=== PATIENT | male | born 2000 | race Caucasian/White ===

== ENCOUNTER 2023-09-02 23:51 | Emergency (ER) | payer OTHER, SELFPAY ==
[2023-09-02 23:53] VITALS: BP 174/114
--- NOTE | 2023-09-03 00:04 | ED.GENMED ---
History of Present Illness
<DWAYNE Cisse - Last Filed: 09/03/23 05:02>
General
Chief Complaint: Abdominal Symptoms
Time Seen by Provider: 09/02/23 23:57
Travel History
Have you had any contact with someone who has COVID-19?: No
Do you have any symptoms of coronavirus? Fever > 100 degrees, chills, cough, shortness of breath, sore throat, loss of taste or smell, muscle aches, or headache?: No
History of Present Illness
History of Present Illness:
This is a 22 yo male PMH of cyclic vomiting presenting for vomiting x 4 days. He states he stopped cannibis use earlier this week and this was followed by intractible vomiting, stating he vomits up to 30 times per day, associated occasional spots of
blood in his vomit. On monday he developed 6/10 crampy epigastric pain which he states radiates to his esophagus. He was evaluated at [facility] on and was treated with zofran and ativan which he states helped until cessation of these
medications on discharge.
On exam, patient is in mild distress, has mild generalized abdominal tenderness.
Past History
<DAWYNE Cisse - Last Filed: 09/03/23 05:02>
Past History
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
ED Past Surgical History: None
Social History
Tobacco: Vaping
Alcohol: None
Drug: Marijuana (states that he stopped)
Personal: Single
Living: with family
Review of Systems
<DWAYNE Cisse - Last Filed: 09/03/23 05:02>
Review of Systems
Allergies reviewed?: Yes
Constitutional: Reports fatigue
EENT: Reports no symptoms
Respiratory: Reports no symptoms
Cardiac: Reports no symptoms
ABD/GI: Reports abdominal pain, nausea, vomiting and pain
: Reports no symptoms
Musculoskeletal: Reports no symptoms
Skin: Reports no symptoms
Neurological: Reports no symptoms
Phy Exam
<DWAYNE Cisse - Last Filed: 09/03/23 05:02>
General Physical Exam
General Presentation: mild distress
General age: appears stated age
General Skin: warm and dry
General Mental: alert
Cardiovascular Exam
Cardiovascular Exam: regular rate/rhythm
Pulmonary Exam
Pulmonary Exam: lungs clear
Gastrointestinal Exam
Gastrointestinal Exam: soft, non distended and tender
Palpation: generalized: Mild tenderness
Skin Exam
Skin Exam: normal color
Course
<DWAYNE Cisse - Last Filed: 09/03/23 05:02>
Orders/Labs/Results
Orders:
Orders
09/03/23 00:08
Electrocardiogram (*1) Urgent
Reason for Study: Syncope
EKG- Treatment ONCE
09/03/23 00:09
0.9% Sodium Chloride 1000 ml [Nss] 1,000 ml IV BOLUS
09/03/23 00:22
Complete Blood Count/With Diff Urgent
09/03/23 00:34
Ondansetron Injectable [Zofran] 4 mg .ROUTE .STK-MED ONE
09/03/23 00:37
Ondansetron Injectable [Zofran] 4 mg IV NOW STA
09/03/23 00:38
Comprehensive Metabolic Panel Urgent
Comment: REDRAW
Magnesium Urgent
09/03/23 00:46
0.9% Sodium Chloride 1000 ml [Nss] 1,000 ml IV BOLUS
09/03/23 00:47
Lorazepam [Ativan] 1 mg IV NOW STA
Abnormal Lab Results
09/03/23 09/03/23
00:22 00:38
WBC 11.8 H 10^3/uL
(4.8-10.8)
MPV 10.9 H fL
(7.4-10.4)
Abs Immat Gran (auto) 0.1 H 10^3/uL
(0-0.05)
Absolute Neuts (auto) 7.5 H 10^3/uL
(1.4-6.5)
Absolute Monos (auto) 0.9 H 10^3/uL
(0.1-0.6)
Immature Gran % 1.2 H %
(0-0.5)
Chloride 93 L mmol/L
(98-107)
Carbon Dioxide 31 H mmol/L
(22-30)
BUN 25 H mg/dl
(9-20)
Glucose 130 H mg/dl
(70-99)
Calcium 10.5 H mg/dl
(8.4-10.2)
Magnesium 2.5 H mg/dl
(1.6-2.3)
Total Bilirubin 1.4 H mg/dl
(0.2-1.3)
Total Protein 8.9 H g/dl
(6.3-8.2)
Albumin 5.4 H g/dl
(3.5-5.0)
09/03/23 00:22
09/03/23 00:38
Vital Signs
Initial and Last Documented VS:
Initial Vital Signs
Pulse Resp BP Pulse Ox
80 24 174/114 98
09/02/23 23:53 09/02/23 23:53 09/02/23 23:53 09/02/23 23:53
Last Documented Vital Signs
Pulse Resp BP Pulse Ox
62 16 159/101 97
09/03/23 02:04 09/03/23 02:04 09/03/23 02:04 09/03/23 02:04
<Rigo Soto MD - Last Filed: 09/03/23 03:35>
Orders/Labs/Results
Orders:
Orders
09/03/23 00:08
Electrocardiogram (*1) Urgent
Reason for Study: Syncope
EKG- Treatment ONCE
09/03/23 00:09
0.9% Sodium Chloride 1000 ml [Nss] 1,000 ml IV BOLUS
09/03/23 00:22
Complete Blood Count/With Diff Urgent
09/03/23 00:34
Ondansetron Injectable [Zofran] 4 mg .ROUTE .STK-MED ONE
09/03/23 00:37
Ondansetron Injectable [Zofran] 4 mg IV NOW STA
09/03/23 00:38
Comprehensive Metabolic Panel Urgent
Comment: REDRAW
Magnesium Urgent
09/03/23 00:46
0.9% Sodium Chloride 1000 ml [Nss] 1,000 ml IV BOLUS
09/03/23 00:47
Lorazepam [Ativan] 1 mg IV NOW STA
Abnormal Lab Results
09/03/23 09/03/23
00:22 00:38
WBC 11.8 H 10^3/uL
(4.8-10.8)
MPV 10.9 H fL
(7.4-10.4)
Abs Immat Gran (auto) 0.1 H 10^3/uL
(0-0.05)
Absolute Neuts (auto) 7.5 H 10^3/uL
(1.4-6.5)
Absolute Monos (auto) 0.9 H 10^3/uL
(0.1-0.6)
Immature Gran % 1.2 H %
(0-0.5)
Chloride 93 L mmol/L
(98-107)
Carbon Dioxide 31 H mmol/L
(22-30)
BUN 25 H mg/dl
(9-20)
Glucose 130 H mg/dl
(70-99)
Calcium 10.5 H mg/dl
(8.4-10.2)
Magnesium 2.5 H mg/dl
(1.6-2.3)
Total Bilirubin 1.4 H mg/dl
(0.2-1.3)
Total Protein 8.9 H g/dl
(6.3-8.2)
Albumin 5.4 H g/dl
(3.5-5.0)
09/03/23 00:22
09/03/23 00:38
Vital Signs
Initial and Last Documented VS:
Initial Vital Signs
Pulse Resp BP Pulse Ox
80 24 174/114 98
09/02/23 23:53 09/02/23 23:53 09/02/23 23:53 09/02/23 23:53
Last Documented Vital Signs
Pulse Resp BP Pulse Ox
62 16 159/101 97
09/03/23 02:04 09/03/23 02:04 09/03/23 02:04 09/03/23 02:04
<DWAYNE Cisse - Last Filed: 09/03/23 05:02>
MDM/Problems Addressed
Differential Diagnosis Includes:
Cyclic vomiting syndrome
MDM/Problems Addressed:
Zofran, Ativan given for vomiting
<DWAYNE Cisse - Last Filed: 09/03/23 05:02>
*Radiology
Radiology exam reviewed: all reviewed NAD by ED Provider
*Critical Care Note
Total Time (30-74mins, 75-104mins- exclusive of procedures): Not Applicable
<Rigo Soto MD - Last Filed: 09/03/23 03:35>
*EKG
Interpreted by ED Provider?: Yes
EKG Intrepretation Date: 09/03/23
Heart Rate: 60
Rate: normal
Rhythm: sinus
[place]: normal axis
Interval: normal interval and normal QT interval
QRS Pattern: normal QRS
ED Attending Note
<DWAYNE Cisse - Last Filed: 09/03/23 05:02>
-
Portions of this chart may have been created with voice recognition software.� Occasional wrong word or��sound alike� substitutions may have occurred due to the inherent limitations of voice recognition software.
<Rigo Soto MD - Last Filed: 09/03/23 03:35>
ED Attending Note
Patient seen and examined by attending physician: Yes
ED Attending Note:
Patient with history of cyclic vomiting syndrome secondary to marijuana use, presents ED secondary to persistent nausea, vomiting, and diarrhea over the past 4 days. Patient once again admits to having used marijuana recently. Denies fever or
chills. Denies chest pain or shortness of breath. Patient reports diffuse abdominal pain. Patient states that he has not been able to eat anything for the past 4 days, and has lost significant weight. Patient reports feeling generalized weakness
and fatigue. Denies use of any other illicit medications. Of note, patient was evaluated at different emergency department 2 days ago for similar complaint.
Physical Exam
General: mild distress, not acutely ill. afebrile
Head: nc/at. eomi
Neck: supple. no meningeal signs.
Heart: s1/s2 regular rate and rhythm, no murmur. equal radial pulses.
Lungs: no acute respiratory distress. clear bilaterally
Abdomen: normal bowel sounds. no distention. diffuse mild abdominal tenderness.
Neuro: alert and oriented. no focal neurological deficits
Skin: no rash
Psychiatric: well kept. interactive and cooperative
Extremities: no edema. no calf tenderness.
Patient with significant improvement in symptoms after treatment, and is without any further vomiting episodes after treatment. Patient is alert, awake, oriented, and is without any acute distress at time of discharge, to the care of family.
Patient will be recommended to follow-up with GI physician for outpatient consultation. In addition, patient states that he will stop using marijuana.
Repeat abd exam: soft and nontender.
Discharge Plan
Departure
Patient Disposition: Home (Routine Discharge)
Date of Disposition: 09/03/23
Time of Disposition: 03:22
Patient with high blood pressure during this ER visit?: Yes
Condition: Good
Discharge Problem:
Nausea & vomiting
Instructions: Nausea and Vomiting, Adult (DC)
Prescriptions:
New
metoclopramide HCl [Reglan] 10 mg tablet
10 mg PO Q8HPRN PRN (Reason: nausea and vomiting) Qty: 14 0RF
lorazepam [Ativan] 0.5 mg tablet
0.5 mg PO DAILY PRN (Reason: nausea and vomiting) Qty: 2 0RF
No Action
gabapentin 600 mg Tablet
600 mg PO BID
lorazepam [Ativan] 0.5 mg tablet
0.5 mg PO BID PRN (Reason: nausea and vomiting) Qty: 10 0RF
lorazepam [Ativan] 0.5 mg tablet
0.5 mg PO BID PRN (Reason: nausea and vomiting) Qty: 10 0RF
Referrals:
Jose F Rios DO [Family Provider] -
Deng Corbett MD [Active] -
Activity Restrictions/Additional Instructions:
As discussed, please follow-up with your primary care physician and/or referred to GI physician for further evaluation and treatment. Your prescriptions have been sent electronically to [facility] pharmacy in [place].
Interventions
Interventions:
*Risk Screen - Suicide Last Done: 09/02/23 23:53
*General Assessment Last Done: 09/03/23 00:23
*Neglect/Abuse Screening Last Done: 09/02/23 23:53
*Nursing Disposition Last Done: 09/03/23 04:19
DK-Hdczdz-Wkafipdugh Assessment Last Done: 09/03/23 00:23
ED- Cardiac Assessment Last Done: 09/03/23 00:23
ED- Neurological Assessment Last Done: 09/03/23 00:23
Discharge Date and Time
Discharge Date/Time: 09/03/23 04:20
Print Language: FIJIAN
[2023-09-03 00:23] VITALS: BMI 23.3
[2023-09-03] MEDS: ZOFRAN 4 MG IV (00:39)
[2023-09-03] MEDS: NSS 1000 IV ×2 (00:39→00:53)
[2023-09-03 00:40] LABS: % Basophils 0.3 % (0-2); % Eosinophils 0.2 % (0-6); % Immature Granulocytes 1.2 % (0-0.5); % Lymphocytes 26.9 % (20.5-51.1); % Monocytes 7.6 % (1.7-9.3); % Neutrophils 63.8 % (42.2-75.2); Absolute Immature Granulocytes 0.1 10^3/uL (0-0.05); Absolute Lymphocytes 3.2 10^3/uL (1.2-3.4); Absolute Monocytes 0.9 10^3/uL (0.1-0.6); Absolute Neutrophils 7.5 10^3/uL (1.4-6.5); Hematocrit 47.3 % (39.0-52.0); Hemoglobin 17.1 g/dL (13.0-18.0); Mean Corp Hgb Conc. 36.2 g/dL (33.0-37.0); Mean Corpuscular Hgb 29.4 pg (27.0-31.0); Mean Corpuscular Volume 81.3 fL (80.0-94.0); Mean Platelet Volume 10.9 fL (7.4-10.4); Nucleated Red Blood Cells % 0 % (-); Platelet Count 285 10^3/uL (130-400); Red Blood Cell Count 5.82 10^6/uL (4.70-6.10); Red Cell Dist. Width 12.5 % (11.5-14.5); White Blood Cell Count 11.8 10^3/uL (4.8-10.8)
[2023-09-03] MEDS: ATIVAN 1 MG IV (00:53)
[2023-09-03 01:04] LABS: ALT (SGPT) 18 U/L (0-50); AST (SGOT) 21 U/L (17-59); Albumin 5.4 g/dl (3.5-5.0); Alkaline Phosphatase 82 U/L (38-126); Blood Urea Nitrogen 25 mg/dl (9-20); Calcium 10.5 mg/dl (8.4-10.2); Carbon Dioxide 31 mmol/L (22-30); Chloride 93 mmol/L (98-107); Estimated Creatinine Clearance 114 ml/min; Glucose 130 mg/dl (70-99); Magnesium 2.5 mg/dl (1.6-2.3); Potassium 3.5 mmol/L (3.5-5.1); Sodium 136 mmol/L (135-145); Total Bilirubin 1.4 mg/dl (0.2-1.3); Total Protein 8.9 g/dl (6.3-8.2); eGFR > 60.00
[2023-09-03 02:04] VITALS: BP 159/101
== END 2023-09-03 04:20 | disposition home or self-care (01) ==
LOC: EMR 23:51
PROVIDERS: EMERGENCY PHYSICIAN Emergency Medicine; FAMILY PHYSICIAN Family Medicine
DX: R11.2 Nausea with vomiting, unspecified (principal); R11.15 Cyclical vomiting syndrome unrelated to migraine; R10.13 Epigastric pain; F17.290 Nicotine dependence, other tobacco product, uncomplicated; F12.90 Cannabis use, unspecified, uncomplicated; R03.0 Elevated blood-pressure reading, without diagnosis of hypertension
CPT/HCPCS: 99284; 96374; 96375; 96361 ×2; 80053; 83735; 85025; 93005

== ENCOUNTER 2023-12-03 11:52 | Emergency (ER) | payer OTHER, SELFPAY ==
[2023-12-03 11:56] VITALS: BP 152/108
[2023-12-03 14:08] LABS: % Basophils 0.2 % (0-2); % Immature Granulocytes 0.3 % (0-0.5); % Lymphocytes 13.6 % (20.5-51.1); % Monocytes 4.2 % (1.7-9.3); % Neutrophils 81.7 % (42.2-75.2); Absolute Lymphocytes 1.4 10^3/uL (1.2-3.4); Absolute Monocytes 0.4 10^3/uL (0.1-0.6); Absolute Neutrophils 8.5 10^3/uL (1.4-6.5); Hematocrit 48.3 % (39.0-52.0); Hemoglobin 17.4 g/dL (13.0-18.0); Mean Corpuscular Hgb 29.4 pg (27.0-31.0); Mean Corpuscular Volume 81.7 fL (80.0-94.0); Mean Platelet Volume 10.6 fL (7.4-10.4); Nucleated Red Blood Cells % 0 % (-); Platelet Count 237 10^3/uL (130-400); Red Blood Cell Count 5.91 10^6/uL (4.70-6.10); Red Cell Dist. Width 12.2 % (11.5-14.5); White Blood Cell Count 10.4 10^3/uL (4.8-10.8)
[2023-12-03 14:17] LABS: ALT (SGPT) 23 U/L (0-50); AST (SGOT) 33 U/L (17-59); Albumin 5.5 g/dl (3.5-5.0); Alkaline Phosphatase 79 U/L (38-126); Blood Urea Nitrogen 17 mg/dl (9-20); Calcium 10.1 mg/dl (8.4-10.2); Carbon Dioxide 32 mmol/L (22-30); Chloride 98 mmol/L (98-107); Glucose 120 mg/dl (70-99); Lipase 52 U/L (23-300); Potassium 3.8 mmol/L (3.5-5.1); Sodium 141 mmol/L (135-145); Total Bilirubin 0.9 mg/dl (0.2-1.3); Total Protein 8.5 g/dl (6.3-8.2); eGFR > 60.00
--- NOTE | 2023-12-03 14:18 | ED.GENMED ---
History of Present Illness
General
Chief Complaint: Abdominal Pain
Source: patient and family
Exam Limitations: none
Time Seen by Provider: 12/03/23 14:08
Nursing documentation reviewed up to this point in time: agreed with
History of Present Illness
History of Present Illness:
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
feels very anxious, cramping in his abdomen has some diarrhea today no prior abdominal surgeries, he is unemployed he is in a medical assisted recovery treatment accompanied by his grandmother who he lives with who is with him now
Past History
Past History
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
ED Past Surgical History: Other (omfs); Negative Appendectomy, Bowel resection, Cardiac or Cholecystectomy
Patient has exhibited threatening behavior?: No
Social History
Tobacco: Vaping
Alcohol: None
Drug: Marijuana (states that he stopped)
Personal: Single
Living: with family
Employment: Not employed
Review of Systems
Review of Systems
All Other Systems: Not applicable
Constitutional: Denies fever or fatigue
EENT: Reports no symptoms
Respiratory: Reports no symptoms
ABD/GI: Reports abdominal pain, nausea, vomiting and diarrhea
Neurological: Reports dizzy and weakness
Psychiatric: Reports anxiety; Denies suicidal
Phy Exam
Physical Exam
Physical Exam:
Physical Exam
General: Cooperative somewhat disheveled 23-year-old
Neck: Lips are slightly dry lips
Heart: s1/s2 regular rate and rhythm, no murmur. equal radial pulses.
Lungs: no acute respiratory distress. clear bilaterally
Abdomen: Soft, minimal epigastric tenderness no guarding or rebound
Neuro: alert and oriented. no focal neurological deficits
Skin: no rash
Psychiatric: Anxious cooperative
Extremities: no edema
Course
Orders/Labs/Results
Orders:
Orders
12/03/23 13:53
Complete Blood Count/With Diff Urgent
Comprehensive Metabolic Panel Urgent
Lipase Urgent
12/03/23 14:13
diazePAM [Valium Injection] 5 mg IV NOW STA
12/03/23 14:17
0.9% Sodium Chloride 1000 ml [Nss] 1,000 ml IV BOLUS
12/03/23 14:25
Mag Hydrox/Al Hydrox/Simeth [Maalox] 30 ml Phenobarb/Hyoscy/Atropine/Scop [] 10 ml PO NOW
12/03/23 14:27
Mag Hydrox/Al Hydrox/Simeth [Maalox] 30 ml .ROUTE .STK-MED ONE
Phenobarb/Hyoscy/Atropine/Scop [] 10 ml .ROUTE .STK-MED ONE
12/03/23 14:31
Mag Hydrox/Al Hydrox/Simeth [Maalox] 30 ml PO NOW STA
12/03/23 15:06
0.9% Sodium Chloride 1000 ml [Nss] 1,000 ml IV BOLUS
12/03/23 15:44
diazePAM [Valium Injection] 5 mg IV NOW STA
Abnormal Lab Results
12/03/23
13:53
MPV 10.6 H fL
(7.4-10.4)
Absolute Neuts (auto) 8.5 H 10^3/uL
(1.4-6.5)
Neutrophils % 81.7 H %
(42.2-75.2)
Lymphocytes % 13.6 L %
(20.5-51.1)
Carbon Dioxide 32 H mmol/L
(22-30)
Glucose 120 H mg/dl
(70-99)
Total Protein 8.5 H g/dl
(6.3-8.2)
Albumin 5.5 H g/dl
(3.5-5.0)
12/03/23 13:53
12/03/23 13:53
Vital Signs
Initial and Last Documented VS:
Initial Vital Signs
Temp Pulse Resp BP Pulse Ox
99.5 F 96 18 152/108 100
12/03/23 11:56 12/03/23 11:56 12/03/23 11:56 12/03/23 11:56 12/03/23 11:56
Last Documented Vital Signs
Temp Pulse Resp BP Pulse Ox
99.6 F 60 18 162/104 98
12/03/23 14:22 12/03/23 14:22 12/03/23 11:56 12/03/23 14:22 12/03/23 14:22
MDM/Problems Addressed
Differential Diagnosis Includes:
Dehydration, drug withdrawal cyclic vomiting pancreatitis biliary tract
MDM/Problems Addressed:
Abdominal pain
Chronic conditions affecting care:
Substance abuse
Chronic conditions affecting care: Psychiatric illness
Acute Exacerbation and/or Progression of Chronic Illness:
Substance abuse
Acute Exacerbation and/or Progression of Chronic Illness: Psychiatric illness
*Pulse Oximetry
Patient hypoxic: no
*Critical Care Note
Total Time (30-74mins, 75-104mins- exclusive of procedures): Not Applicable
Update Note
Update Note:
Update labs noted, patient still feeling some nausea second liter saline ordered he states that only Valium works for him for nausea, PDMP noted he tells me his plan is to go back to his intensive outpatient rehab tomorrow, encouraged to not use
marijuana anymore patient is in agreement
ED Attending Note
-
Portions of this chart may have been created with voice recognition software.� Occasional wrong word or��sound alike� substitutions may have occurred due to the inherent limitations of voice recognition software.
Discharge Plan
Departure
Prescriptions:
No Action
gabapentin 600 mg Tablet
600 mg PO BID
lorazepam [Ativan] 0.5 mg tablet
0.5 mg PO BID PRN (Reason: nausea and vomiting) Qty: 10 0RF
lorazepam [Ativan] 0.5 mg tablet
0.5 mg PO BID PRN (Reason: nausea and vomiting) Qty: 10 0RF
metoclopramide HCl [Reglan] 10 mg tablet
10 mg PO Q8HPRN PRN (Reason: nausea and vomiting) Qty: 14 0RF
lorazepam [Ativan] 0.5 mg tablet
0.5 mg PO DAILY PRN (Reason: nausea and vomiting) Qty: 2 0RF
Referrals:
Giselle Foster MD [Family Provider] -
Interventions
Interventions:
*Risk Screen - Suicide Last Done: 12/03/23 11:56
*General Assessment Last Done: 12/03/23 11:56
*Neglect/Abuse Screening Last Done: 12/03/23 11:56
*ED COVID-19 Vaccine History Last Done: 12/03/23 13:50
HG-Jykwwc-Iuagjjocpl Assessment Last Done: 12/03/23 14:23
Discharge Date and Time
Print Language: PERUVIAN
[2023-12-03] MEDS: NSS 1000 IV ×2 (14:19→15:22)
[2023-12-03] MEDS: VALIUM INJECTION 5 MG IV ×2 (14:20→15:49)
[2023-12-03 14:22] VITALS: BP 162/104
[2023-12-03] MEDS: MAALOX 30 ML PO (14:31)
[2023-12-03 16:34] VITALS: BP 153/106
[2023-12-03 17:37] VITALS: BP 154/100
== END 2023-12-03 17:39 | disposition home or self-care (01) ==
LOC: EMR 11:52
PROVIDERS: Emergency Medicine; EMERGENCY PHYSICIAN Emergency Medicine; FAMILY PHYSICIAN Emergency Medicine
DX: R11.2 Nausea with vomiting, unspecified (principal); F12.90 Cannabis use, unspecified, uncomplicated; F17.290 Nicotine dependence, other tobacco product, uncomplicated
CPT/HCPCS: 99284; 96374; 96375; 96361 ×2; 80053; 83690; 85025

== ENCOUNTER 2024-03-21 17:46 | Emergency (ER) | payer OTHER, SELFPAY ==
[2024-03-21 17:47] VITALS: BMI 28.9
[2024-03-21 17:50] VITALS: BP 165/106
--- NOTE | 2024-03-21 18:26 | ED.GENMED ---
History of Present Illness
General
Chief Complaint: Heart Rate Problem
Source: patient
Exam Limitations: none
Time Seen by Provider: 03/21/24 18:16
History of Present Illness
History of Present Illness:
See MDM
Past History
Past History
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
ED Past Surgical History: Other (omfs); Negative Appendectomy, Bowel resection, Cardiac or Cholecystectomy
Patient has exhibited threatening behavior?: No
Social History
Tobacco: Vaping
Alcohol: None
Drug: Marijuana (states that he stopped)
Personal: Single
Living: with family
Employment: Not employed
Phy Exam
Physical Exam
Physical Exam:
See MDM
Course
Orders/Labs/Results
Orders:
Orders
03/21/24 17:56
EKG [Electrocardiogram (*1)] Urgent
Reason for Study: Chest Pain
EKG- Treatment ONCE
03/21/24 18:25
CR Chest - 2 Views Urgent
Comment:
Reason For Exam: Left side chest pain
03/21/24 18:28
Complete Blood Count/With Diff Urgent
Comprehensive Metabolic Panel Urgent
Troponin I Urgent
03/21/24 19:07
Trimethobenzamide [Tigan] 200 mg IM NOW STA
03/21/24 22:00
Capsaicin [Zostrix-Hp 0.075% Cream] See Dose Instructions TOPICAL ONCE ONE
03/21/24 22:09
Nicotine [Nicoderm Transdermal] 14 mg TRANSDERM ONCE ONE
Abnormal Lab Results
03/21/24
18:28
WBC 11.4 H 10^3/uL
(4.8-10.8)
Absolute Neuts (auto) 7.4 H 10^3/uL
(1.4-6.5)
Absolute Monos (auto) 1.2 H 10^3/uL
(0.1-0.6)
Monocytes % 10.6 H %
(1.7-9.3)
Sodium 132 L mmol/L
(135-145)
Potassium 3.2 L mmol/L
(3.5-5.1)
Chloride 83 L mmol/L
(98-107)
Carbon Dioxide 34 H mmol/L
(22-30)
BUN 24 H mg/dl
(9-20)
Glucose 124 H mg/dl
(70-99)
Total Protein 8.5 H g/dl
(6.3-8.2)
Albumin 5.3 H g/dl
(3.5-5.0)
03/21/24 18:28
03/21/24 18:28
Vital Signs
Initial and Last Documented VS:
Initial Vital Signs
Temp Pulse Resp BP Pulse Ox
98.6 F 72 18 165/106 99
03/21/24 17:50 03/21/24 17:50 03/21/24 17:50 03/21/24 17:50 03/21/24 17:50
Last Documented Vital Signs
Temp Pulse Resp BP Pulse Ox
98.6 F 78 16 140/82 98
03/21/24 17:50 03/21/24 21:15 03/21/24 21:15 03/21/24 21:15 03/21/24 21:15
MDM/Problems Addressed
Differential Diagnosis Includes:
HPI and MDM Narrative:
23-year-old male presenting for evaluation of palpitations and chest pressure. This has been ongoing since today. Symptoms appear to have worsened with vomiting. Patient has a history of cannabis hyperemesis syndrome. His last use was yesterday
and he was vomiting today. Patient states that there are multiple times to do that he felt like his get a pass out so he leaned forward and would pass out for a second or so. On exam, patient is well-appearing nontoxic. EKG is nonischemic. Will
continue to monitor on telemetry. Will obtain basic blood work. Given left-sided chest pain, will obtain x-ray to rule out pneumothorax. Patient is requesting drug counselor. Patient is having trouble with his marijuana use
Physical exam
General: Well appearing and non-toxic
HEENT: protecting airway. Mildly dry mucous membrane
Neck: appears supple
CV: No evidence of cyanosis. Regular and rhythm. No murmur
Resp: No accessory muscle use. Lungs clear
Abd: Non-distended
Extremities: No deformities
Neuro: alert
Psych: Normal affect
Skin: Intact
Problems Addressed including Acute and Chronic Conditions affecting care:
1. Palpitations
Acuity: acute
Prognosis: stable
Details: EKG without arrhythmia. Will continue to monitor.
Updates
Patient found to have mildly low potassium which is likely related to his vomiting. EKG shows very mild QT lengthening. Patient still nauseous. Will give dose of Tigan to avoid prolongation of QT
Multiple hot showers are helping. Patient was given Station which is helping somewhat. RAO did evaluate and his symptoms appear to be more related to the significant amount of vaping that he does. Patient given NicoDerm patch and we discussed
cessation of vaping
Differential Diagnosis (but not limited to): Orthostatic hypotension, palpitations, dehydration
Testing considered: UDS
Drug therapy (if applicable): OTC meds, please see d/c instruction regarding Rx drugs
Amount and/or Complexity of Data Reviewed
Clinical info obtained from: Patient
External data reviewed: N/A
Labs I independently reviewed (but not limited to): Hyperkalemia
Radiology: N/A
Pulse Ox: not hypoxic
EKG independently reviewed: Sinus rhythm, normal axis, no STEMI
Process Coordinator: Sinus rhythm
Critical Care: N/A
Risk of Complication:
Social Determinants of health: Good social support
Discussed with other providers: N/A
Escalation of Care includes Admit/Obs: After being observed in the Emergency Department, pt stable for discharge.
Occasional wrong word or 'sound a like' substitutions may have occurred due to the inherent limitations of voice recognition software. Read the chart carefully and recognize, using context, where substitutions have occurred.
*Critical Care Note
Total Time (30-74mins, 75-104mins- exclusive of procedures): Not Applicable
ED Attending Note
-
Portions of this chart may have been created with voice recognition software.� Occasional wrong word or��sound alike� substitutions may have occurred due to the inherent limitations of voice recognition software.
Discharge Plan
Departure
Patient Disposition: Home (Routine Discharge)
Date of Disposition: 03/21/24
Time of Disposition: 22:14
Patient with high blood pressure during this ER visit?: Yes
Discharge Problem:
Heart palpitations, Vomiting, Hypokalemia
Instructions: Palpitations (DC), Nausea and Vomiting, Adult ED
Prescriptions:
No Action
gabapentin 600 mg Tablet
600 mg PO BID
lorazepam [Ativan] 0.5 mg tablet
0.5 mg PO BID PRN (Reason: nausea and vomiting) Qty: 10 0RF
lorazepam [Ativan] 0.5 mg tablet
0.5 mg PO BID PRN (Reason: nausea and vomiting) Qty: 10 0RF
metoclopramide HCl [Reglan] 10 mg tablet
10 mg PO Q8HPRN PRN (Reason: nausea and vomiting) Qty: 14 0RF
lorazepam [Ativan] 0.5 mg tablet
0.5 mg PO DAILY PRN (Reason: nausea and vomiting) Qty: 2 0RF
Referrals:
Giselle Foster MD [Family Provider] -
Activity Restrictions/Additional Instructions:
Please return for any worsening symptoms.
You may return at any time if you have further concerns.
Please follow up with your doctor at the first available appointment, preferably this week.
Thank you for choosing [facility].
Interventions
Interventions:
*Risk Screen - Suicide Last Done: 03/21/24 17:50
*General Assessment Last Done: 03/21/24 18:15
*Neglect/Abuse Screening Last Done: 03/21/24 18:15
ED- Fall Risk Assessment Last Done: 03/21/24 18:15
ED- Cardiac Assessment Last Done: 03/21/24 18:15
ED- Pulmonary Assessment Last Done: 03/21/24 18:15
Discharge Date and Time
Print Language: POLISH
[2024-03-21 18:30] VITALS: BP 136/99
[2024-03-21 18:39] LABS: % Basophils 0.2 % (0-2); % Eosinophils 0.4 % (0-6); % Immature Granulocytes 0.3 % (0-0.5); % Lymphocytes 23.5 % (20.5-51.1); % Monocytes 10.6 % (1.7-9.3); Absolute Lymphocytes 2.7 10^3/uL (1.2-3.4); Absolute Monocytes 1.2 10^3/uL (0.1-0.6); Absolute Neutrophils 7.4 10^3/uL (1.4-6.5); Hematocrit 47.2 % (39.0-52.0); Mean Corpuscular Volume 80.5 fL (80.0-94.0); Mean Platelet Volume 9.7 fL (7.4-10.4); Nucleated Red Blood Cells % 0 % (-); Platelet Count 268 10^3/uL (130-400); Red Blood Cell Count 5.86 10^6/uL (4.70-6.10); Red Cell Dist. Width 11.9 % (11.5-14.5); White Blood Cell Count 11.4 10^3/uL (4.8-10.8)
[2024-03-21 18:55] LABS: ALT (SGPT) 27 U/L (0-50); AST (SGOT) 24 U/L (17-59); Albumin 5.3 g/dl (3.5-5.0); Alkaline Phosphatase 76 U/L (38-126); Blood Urea Nitrogen 24 mg/dl (9-20); Calcium 9.8 mg/dl (8.4-10.2); Carbon Dioxide 34 mmol/L (22-30); Chloride 83 mmol/L (98-107); Estimated Creatinine Clearance > 125 ml/min; Glucose 124 mg/dl (70-99); Potassium 3.2 mmol/L (3.5-5.1); Sodium 132 mmol/L (135-145); Total Protein 8.5 g/dl (6.3-8.2); eGFR > 60.00
[2024-03-21 19:00] VITALS: BP 141/85
[2024-03-21 19:02] LABS: Troponin I < 0.012 ng/ml
[2024-03-21] MEDS: TIGAN 200 MG IM (19:39)
--- NOTE | 2024-03-21 20:13 | EDRN ---
This RN spoke w/ [facility] as pt. requesting drug counseling. [facility] sales representative trainee reports is en route to hospital, and will talk w/ pt. about resources. ED attending aware.
[2024-03-21 21:15] VITALS: BP 140/82
[2024-03-21] MEDS: ZOSTRIX-HP 0.075% CREAM 1 APPLIC TOPICAL (22:01)
[2024-03-21] MEDS: NICODERM TRANSDERMAL 14 MG TRANSDERM (22:14)
== END 2024-03-21 22:36 | disposition home or self-care (01) ==
LOC: EMR 17:46
PROVIDERS: EMERGENCY PHYSICIAN Student in an Organized Health Care Education/Training Program; FAMILY PHYSICIAN Emergency Medicine
DX: R00.2 Palpitations (principal); R11.2 Nausea with vomiting, unspecified; E87.6 Hypokalemia; F41.9 Anxiety disorder, unspecified; F90.9 Attention-deficit hyperactivity disorder, unspecified type; F91.3 Oppositional defiant disorder; F17.290 Nicotine dependence, other tobacco product, uncomplicated; Z90.49 Acquired absence of other specified parts of digestive tract
CPT/HCPCS: 99283; 96372; 71046; 80053; 84484; 85025; 93005

== ENCOUNTER 2024-04-03 22:02 | Emergency (ER) | payer OTHER, SELFPAY ==
[2024-04-03 22:18] VITALS: BP 135/87
[2024-04-03 23:03] VITALS: BMI 29.1
--- NOTE | 2024-04-03 23:10 | ED.GENMED ---
History of Present Illness
General
Chief Complaint: Skin Problem
Time Seen by Provider: 04/03/24 22:29
History of Present Illness
History of Present Illness:
23-year-old male presents to the emergency department for evaluation of focal hair loss to the left anterior lower leg over the past several days. States his primary care physician advised him to come to the ED for further workup. He has noted to
be tachycardic and tremulous, states he has a cyclic vomiting issue and recently went through a 2-week period of poor intake and frequent vomiting. He does admit to illicit substance use including cannabinoids as well as opioids. Last use of
opioids was this morning. Denies any fevers.
Past History
Past History
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
ED Past Surgical History: Other (omfs); Negative Appendectomy, Bowel resection, Cardiac or Cholecystectomy
Patient has exhibited threatening behavior?: No
Social History
Tobacco: Vaping
Alcohol: None
Drug: Marijuana (states that he stopped)
Personal: Single
Living: with family
Employment: Not employed
Review of Systems
Review of Systems
Allergies reviewed?: Yes
All Other Systems: ROS reviewed and negative except as documented in HPI and ROS
Phy Exam
Physical Exam
Physical Exam:
GEN: Well appearing, NAD, WDWN
HEENT: Oral mucosa moist, no scleral icterus
Cardiac: Tachycardic, regular
Lung: No respiratory distress, no tachypnea
MSK: No gross deformity or injuries
Skin: Good color, no pallor or jaundice, no rashes. Focal area of patchy hair loss to the left anterior lower leg, no leg edema
Neuro: AO x3, moves all extremities freely
Psych: Calm, cooperative
Course
Orders/Labs/Results
Orders:
Orders
04/03/24 23:00
Basic Metabolic Panel Urgent
TSH Urgent
Abnormal Lab Results
04/03/24
23:00
Carbon Dioxide 31 H mmol/L
(22-30)
Glucose 128 H mg/dl
(70-99)
04/03/24 23:00
Vital Signs
Initial and Last Documented VS:
Initial Vital Signs
Temp Pulse Resp BP Pulse Ox
98.2 F 129 18 135/87 98
04/03/24 22:18 04/03/24 22:18 04/03/24 22:18 04/03/24 22:18 04/03/24 22:18
Last Documented Vital Signs
Temp Pulse Resp BP Pulse Ox
98.2 F 129 18 135/87 95
04/03/24 22:18 04/03/24 22:18 04/03/24 22:18 04/03/24 22:18 04/03/24 23:00
MDM/Problems Addressed
MDM/Problems Addressed:
Patient does not appear to clinically be in a thyroid crisis, suspect his heart rate is more on the basis of substance withdrawal and anxiety. Focal hair loss likely represents autoimmune alopecia, recommend dermatology follow-up
*Critical Care Note
Total Time (30-74mins, 75-104mins- exclusive of procedures): Not Applicable
ED Attending Note
-
Portions of this chart may have been created with voice recognition software.� Occasional wrong word or��sound alike� substitutions may have occurred due to the inherent limitations of voice recognition software.
Discharge Plan
Departure
Patient Disposition: Home (Routine Discharge)
Date of Disposition: 04/03/24
Time of Disposition: 23:36
Patient with high blood pressure during this ER visit?: No
Discharge Problem:
Alopecia areata
Instructions: Hair loss
Prescriptions:
No Action
gabapentin 600 mg Tablet
600 mg PO BID
lorazepam [Ativan] 0.5 mg tablet
0.5 mg PO BID PRN (Reason: nausea and vomiting) Qty: 10 0RF
lorazepam [Ativan] 0.5 mg tablet
0.5 mg PO BID PRN (Reason: nausea and vomiting) Qty: 10 0RF
metoclopramide HCl [Reglan] 10 mg tablet
10 mg PO Q8HPRN PRN (Reason: nausea and vomiting) Qty: 14 0RF
lorazepam [Ativan] 0.5 mg tablet
0.5 mg PO DAILY PRN (Reason: nausea and vomiting) Qty: 2 0RF
Referrals:
Giselle Foster MD [Family Provider] -
Ivette Kimball DO [Active] - Call in 1-3 days for appt
Interventions
Interventions:
*Risk Screen - Suicide Last Done: 04/03/24 22:19
*General Assessment Last Done: 04/03/24 22:19
*Neglect/Abuse Screening Last Done: 04/03/24 22:19
ED- Fall Risk Assessment Last Done: 04/03/24 23:13
*ED COVID-19 Vaccine History Last Done: 04/03/24 22:19
ED-Skin Assessment Last Done: 04/03/24 23:13
Discharge Date and Time
Print Language: NEPALESE
[2024-04-03 23:19] LABS: Blood Urea Nitrogen 13 mg/dl (9-20); Calcium 9.1 mg/dl (8.4-10.2); Carbon Dioxide 31 mmol/L (22-30); Chloride 99 mmol/L (98-107); Estimated Creatinine Clearance 120 ml/min; Glucose 128 mg/dl (70-99); Potassium 3.5 mmol/L (3.5-5.1); Sodium 141 mmol/L (135-145); eGFR > 60.00
[2024-04-03 23:47] VITALS: BP 123/69
[2024-04-03 23:50] LABS: TSH 1.86 uIU/ml (0.47-4.68)
== END 2024-04-03 23:48 | disposition home or self-care (01) ==
LOC: EMR 22:02
PROVIDERS: Physician Assistant; EMERGENCY PHYSICIAN Emergency Medicine; FAMILY PHYSICIAN Emergency Medicine
DX: L63.9 Alopecia areata, unspecified (principal); F17.290 Nicotine dependence, other tobacco product, uncomplicated
CPT/HCPCS: 99283; 80048; 84443

== ENCOUNTER 2024-04-05 19:00 | Emergency (ER) | payer OTHER, SELFPAY ==
[2024-04-05 19:18] VITALS: BP 162/109
[2024-04-05 19:33] LABS: % Basophils 0.2 % (0-2); % Eosinophils 0.4 % (0-6); % Immature Granulocytes 0.2 % (0-0.5); % Lymphocytes 27.4 % (20.5-51.1); % Neutrophils 65.8 % (42.2-75.2); Absolute Lymphocytes 2.7 10^3/uL (1.2-3.4); Absolute Monocytes 0.6 10^3/uL (0.1-0.6); Absolute Neutrophils 6.5 10^3/uL (1.4-6.5); Hematocrit 48.1 % (39.0-52.0); Hemoglobin 16.6 g/dL (13.0-18.0); Mean Corp Hgb Conc. 34.5 g/dL (33.0-37.0); Mean Corpuscular Hgb 28.9 pg (27.0-31.0); Mean Corpuscular Volume 83.7 fL (80.0-94.0); Nucleated Red Blood Cells % 0 % (-); Platelet Count 321 10^3/uL (130-400); Red Blood Cell Count 5.75 10^6/uL (4.70-6.10); Red Cell Dist. Width 12.8 % (11.5-14.5); White Blood Cell Count 9.9 10^3/uL (4.8-10.8)
[2024-04-05 19:47] LABS: Lipase 31 U/L (23-300)
[2024-04-05 19:49] LABS: ALT (SGPT) 22 U/L (0-50); AST (SGOT) 19 U/L (17-59); Albumin 5.1 g/dl (3.5-5.0); Alkaline Phosphatase 74 U/L (38-126); Blood Urea Nitrogen 11 mg/dl (9-20); Carbon Dioxide 31 mmol/L (22-30); Chloride 94 mmol/L (98-107); Glucose 109 mg/dl (70-99); Sodium 138 mmol/L (135-145); Total Bilirubin 0.9 mg/dl (0.2-1.3); Total Protein 7.9 g/dl (6.3-8.2); eGFR > 60.00
--- NOTE | 2024-04-05 23:25 | ED.GENMED ---
History of Present Illness
<DWAYNE Dawson - Last Filed: 04/06/24 00:03>
General
Chief Complaint: Abdominal Symptoms
Source: patient
Time Seen by Provider: 04/05/24 23:24
Nursing documentation reviewed up to this point in time: agreed with
History of Present Illness
History of Present Illness:
Pt is a 23 yo M who presents to the ED for vomiting and reduced intake x 3 weeks. Pt states that he has not been able to keep food down for the past 3 weeks. He reports that he has had cannabis hyperemesis previously, and that this is worse and
longer in duration than he has experienced before. Pt states that he has been having diarrhea and abdominal pain that began at the same time. He states that the abdominal pain is located in the epigastric region. He states that he has not taken any
medication for alleviation. He reports feeling chills with the emesis episodes. He denies hematochezia, hematemesis, fever, chest pain, shortness of breath, sick contacts.
Pt reports that for the past 2 weeks he has been trying to stop cannabis use. He states that he used cannabis earlier today.
Past History
<DWAYNE Dawson - Last Filed: 04/06/24 00:03>
Past History
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
ED Past Surgical History: Other (omfs); Negative Appendectomy, Bowel resection, Cardiac or Cholecystectomy
Patient has exhibited threatening behavior?: No
Social History
Tobacco: Vaping
Alcohol: None
Drug: Marijuana (states that he stopped)
Personal: Single
Living: with family
Employment: Not employed
Review of Systems
<DWAYNE Dawson - Last Filed: 04/06/24 00:03>
Review of Systems
Allergies reviewed?: Yes
Constitutional: Reports chills
EENT: Reports no symptoms
Respiratory: Reports no symptoms
Cardiac: Reports no symptoms
ABD/GI: Reports abdominal pain, vomiting, diarrhea and anorexia
: Reports no symptoms
Musculoskeletal: Reports no symptoms
Phy Exam
<DWAYNE Dawson - Last Filed: 04/06/24 00:03>
General Physical Exam
General Presentation: no apparent distress
General age: appears stated age
General Skin: warm
General Habitus: normal
General Mental: alert
General Hydration: appears well hydrated
Cardiovascular Exam
Cardiovascular Exam: regular rate/rhythm
Pulmonary Exam
Pulmonary Exam: lungs clear
Gastrointestinal Exam
Gastrointestinal Exam: normal bowel sounds, soft and non distended
Palpation: generalized: Moderate tenderness (moderate tenderness to palpation [id number])
Course
<DWAYNE Dawson - Last Filed: 04/06/24 00:03>
Orders/Labs/Results
Orders:
Orders
04/05/24 19:27
Complete Blood Count/With Diff Urgent
Comprehensive Metabolic Panel Urgent
Lipase Urgent
04/05/24 23:59
Mag Hydrox/Al Hydrox/Simeth [Maalox] 30 ml Phenobarb/Hyoscy/Atropine/Scop [] 10 ml Viscous Lidocaine 2% [Xylocaine Viscous Cup] 10 ml PO NOW
Pantoprazole [Protonix] 40 mg PO NOW STA
04/06/24 02:04
Pantoprazole [Protonix] 40 mg .ROUTE .STK-MED ONE
04/06/24 02:05
Mag Hydrox/Al Hydrox/Simeth [Maalox] 30 ml .ROUTE .STK-MED ONE
Viscous Lidocaine 2% [Xylocaine Viscous Cup] 15 ml .ROUTE .STK-MED ONE
04/06/24 02:07
Phenobarb/Hyoscy/Atropine/Scop [] 10 ml .ROUTE .STK-MED ONE
04/06/24 23:59
US Abdomen Complete/Upper Urgent
Reason For Exam: epigastric abd pain
Abnormal Lab Results
04/05/24
19:27
Chloride 94 L mmol/L
(98-107)
Carbon Dioxide 31 H mmol/L
(22-30)
Glucose 109 H mg/dl
(70-99)
Albumin 5.1 H g/dl
(3.5-5.0)
04/05/24 19:27
04/05/24 19:27
Vital Signs
Initial and Last Documented VS:
Initial Vital Signs
Temp Pulse Resp BP
98.7 F 103 18 162/109
04/05/24 19:18 04/05/24 19:18 04/05/24 19:18 04/05/24 19:18
Last Documented Vital Signs
Temp Pulse Resp BP Pulse Ox
98.7 F 79 20 133/88 98
04/05/24 19:18 04/06/24 02:00 04/06/24 02:00 04/06/24 02:00 04/06/24 02:00
Duthclt;Dorothy Salomon, DO - Last Filed: 04/06/24 02:55>
Orders/Labs/Results
Orders:
Orders
04/05/24 19:27
Complete Blood Count/With Diff Urgent
Comprehensive Metabolic Panel Urgent
Lipase Urgent
04/05/24 23:59
Mag Hydrox/Al Hydrox/Simeth [Maalox] 30 ml Phenobarb/Hyoscy/Atropine/Scop [] 10 ml Viscous Lidocaine 2% [Xylocaine Viscous Cup] 10 ml PO NOW
Pantoprazole [Protonix] 40 mg PO NOW STA
04/06/24 02:04
Pantoprazole [Protonix] 40 mg .ROUTE .STK-MED ONE
04/06/24 02:05
Mag Hydrox/Al Hydrox/Simeth [Maalox] 30 ml .ROUTE .STK-MED ONE
Viscous Lidocaine 2% [Xylocaine Viscous Cup] 15 ml .ROUTE .STK-MED ONE
04/06/24 02:07
Phenobarb/Hyoscy/Atropine/Scop [] 10 ml .ROUTE .STK-MED ONE
04/06/24 23:59
US Abdomen Complete/Upper Urgent
Reason For Exam: epigastric abd pain
Abnormal Lab Results
04/05/24
19:27
Chloride 94 L mmol/L
(98-107)
Carbon Dioxide 31 H mmol/L
(22-30)
Glucose 109 H mg/dl
(70-99)
Albumin 5.1 H g/dl
(3.5-5.0)
04/05/24 19:27
04/05/24 19:27
Vital Signs
Initial and Last Documented VS:
Initial Vital Signs
Temp Pulse Resp BP
98.7 F 103 18 162/109
04/05/24 19:18 04/05/24 19:18 04/05/24 19:18 04/05/24 19:18
Last Documented Vital Signs
Temp Pulse Resp BP Pulse Ox
98.7 F 79 20 133/88 98
04/05/24 19:18 04/06/24 02:00 04/06/24 02:00 04/06/24 02:00 04/06/24 02:00
<DWAYNE Dawson - Last Filed: 04/06/24 00:03>
*Critical Care Note
Total Time (30-74mins, 75-104mins- exclusive of procedures): Not Applicable
<Dorothy Salomon DO - Last Filed: 04/06/24 02:55>
*Radiology
Radiology exam reviewed: radiology read reviewed (Abdominal ultrasound is unremarkable.)
*Pulse Oximetry
Patient hypoxic: no
ED Attending Note
<DWAYNE Dawson - Last Filed: 04/06/24 00:03>
-
Portions of this chart may have been created with voice recognition software.� Occasional wrong word or��sound alike� substitutions may have occurred due to the inherent limitations of voice recognition software.
<Dorothy Salomon DO - Last Filed: 04/06/24 02:55>
ED Attending Note
Patient seen and examined by attending physician: Yes
I performed the substantive portion of visit, reviewed & personally made and approve the management plan that is documented in note by myself or SAL.: Yes
ED Attending Note:
This is a 23-year-old male with history of substance use disorder, opioids as well as cannabis. Maintained on twice daily Subutex but admits to increased marijuana use as well as some recent illicit opioid use over the past several weeks. He
complains of epigastric pain, burning and gnawing sensation that is much worse with eating or drinking. Intermittent episodes of nonbloody vomitus.
He has history of cannabis hyperemesis syndrome and has been attempting to limit his cannabis use. He has been tolerating clear liquids but poor oral intake for solids.
He has not had a fever nor chills. No diarrhea or constipation.
He has been working with his outpatient recovery center and plans to resume Suboxone once he has completely detoxed from his current opioid use.
He currently does not feel he needs inpatient detox.
He denies alcohol nor NSAID use.
He has not been taking anything for symptoms.
GENERAL: 23-year-old male appears his stated age, awake and alert, appears in no acute distress. Mildly hypertensive initially, improving. Mildly tachycardic initially, tachycardia has since resolved.
EYE: pupils equal and reactive. anicteric
NECK: Supple, nontender, no meningismus, no significant adenopathy.
ENT: oral mucosa is moist. No rhinorrhea.
CARDIAC: Regular rate and rhythm. no murmur.
LUNGS: Clear breath sounds bilaterally, no acute respiratory distress, no wheezes/rales/rhonchi
ABDOMEN: Soft, nondistended, mild to moderate tenderness epigastric region, no r/g, no cvat. normoactive BS.
NEUROLOGICAL: Alert and oriented x3, no focal neuro deficits. Gait is acosta and steady. No tremor.
SKIN: Warm and dry, normal color, skin intact. No rash.
MUSCULOSKELETAL: No C/C/E. peripheral pulses are full and equal b/l. No palpable tenderness.
PSYCH: Normal and appropriate interaction.
Patient presents with 3-week history of epigastric discomfort, sporadic vomiting and decreased oral intake.
Admits to resumption of cannabis as well as illicit opioid use but overall comfortable in appearance. No evidence of opioid withdrawal on exam.
Concern for acute gastritis, peptic ulcer disease, other consideration is cholelithiasis, cholecystitis.
Labs are reassuring, within normal limits, unchanged from previous.
TSH two days ago within normal limits.
Patient has been offered inpatient rehab which he declines. He states he has been following with his outpatient counselor and mission assessment specialist�plan in place.
Will check abdominal ultrasound.
Will trial GI cocktail and Protonix.
02:45
Patient feeling improved after GI cocktail and Protonix.
He has been sipping water, brief nausea but has had no vomiting.
Abdominal ultrasound is unremarkable. Will discharge to home with prescription for once daily Protonix.
Recommend bland diet, avoiding caffeine, spicy or fried foods, avoid alcohol.
Follow-up with counselor, mission assessment specialist as already planned.
Prompt follow-up with PCP for recheck as well.
Discharge Plan
Departure
Patient Disposition: Home (Routine Discharge)
Date of Disposition: 04/06/24
Time of Disposition: 02:53
Patient with high blood pressure during this ER visit?: No
Condition: Good
Discharge Problem:
Acute gastritis, Substance use disorder
Instructions: Gastritis, [place] Diet
Prescriptions:
New
pantoprazole [Protonix] 40 mg tablet,delayed release (DR/EC)
40 mg PO DAILY Qty: 30 0RF
No Action
gabapentin 600 mg Tablet
600 mg PO BID
lorazepam [Ativan] 0.5 mg tablet
0.5 mg PO BID PRN (Reason: nausea and vomiting) Qty: 10 0RF
lorazepam [Ativan] 0.5 mg tablet
0.5 mg PO BID PRN (Reason: nausea and vomiting) Qty: 10 0RF
metoclopramide HCl [Reglan] 10 mg tablet
10 mg PO Q8HPRN PRN (Reason: nausea and vomiting) Qty: 14 0RF
lorazepam [Ativan] 0.5 mg tablet
0.5 mg PO DAILY PRN (Reason: nausea and vomiting) Qty: 2 0RF
Referrals:
Giselle Foster MD [Family Provider] - Call in 1-3 days for appt
Interventions
Interventions:
*Risk Screen - Suicide Last Done: 04/05/24 19:18
*General Assessment Last Done: 04/05/24 19:18
*Neglect/Abuse Screening Last Done: 04/05/24 19:18
*ED COVID-19 Vaccine History Last Done: 04/06/24 02:29
EB-Zueptt-Svzdnozrfu Assessment Last Done: 04/06/24 01:24
Discharge Date and Time
Print Language: KAZAKH
[2024-04-06 02:00] VITALS: BP 133/88
[2024-04-06] MEDS: MAALOX 50 PO (02:07)
[2024-04-06] MEDS: PROTONIX 40 MG PO (02:07)
== END 2024-04-06 03:12 | disposition home or self-care (01) ==
LOC: EMR 19:00
PROVIDERS: Registered Nurse; EMERGENCY PHYSICIAN Emergency Medicine; FAMILY PHYSICIAN Emergency Medicine
DX: K29.00 Acute gastritis without bleeding (principal); F41.9 Anxiety disorder, unspecified; F90.9 Attention-deficit hyperactivity disorder, unspecified type; F91.3 Oppositional defiant disorder; F17.290 Nicotine dependence, other tobacco product, uncomplicated; Z90.49 Acquired absence of other specified parts of digestive tract
CPT/HCPCS: 99284; 76700; 80053; 83690; 85025

== ENCOUNTER 2024-05-26 02:50 | Emergency (ER) | payer OTHER, SELFPAY ==
[2024-05-26 02:52] VITALS: BP 152/95
[2024-05-26 03:21] VITALS: BP 140/80
[2024-05-26 03:22] VITALS: BMI 29.4
--- NOTE | 2024-05-26 04:43 | ED.GENMED ---
History of Present Illness
General
Chief Complaint: Withdrawal Symptoms
Source: patient
Exam Limitations: none
Time Seen by Provider: 05/26/24 04:38
Nursing documentation reviewed up to this point in time: agreed with
History of Present Illness
History of Present Illness:
This is a 23-year-old gentleman with history of substance abuse, anxiety disorder, chronically maintained on Subutex as well as maintained on gabapentin 800 mg 3 times daily. While camping earlier in the week he inadvertently lost his gabapentin
prescription and has not had his usual dose over the past 3 to 4 days. He attempted to find his prescription bottle [place] but was [place].
He denies losing any other medications, has been compliant with his Subutex and follows with psychiatry.
He complains of feeling somewhat restless, anxious, difficulty sleeping but denies suicidal thoughts or plan. Denies return to substance abuse.
Past History
Past History
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
ED Past Surgical History: Other (omfs); Negative Appendectomy, Bowel resection, Cardiac or Cholecystectomy
Patient has exhibited threatening behavior?: No
Social History
Tobacco: Vaping
Alcohol: None
Drug: Marijuana (states that he stopped)
Personal: Single
Living: with family
Employment: Not employed
Phy Exam
Physical Exam
Physical Exam:
GENERAL: 23-year-old gentleman sleeping upon initially entering exam room. Awakens easily. Once awake he is bright and alert, pleasant, appears in no acute distress.
EYE: anicteric
NECK: Supple, nontender, no meningismus, no significant adenopathy.
ENT: oral mucosa is moist. No rhinorrhea.
CARDIAC: Regular rate and rhythm. no murmur.
LUNGS: Clear breath sounds bilaterally, no acute respiratory distress, no wheezes/rales/rhonchi
ABDOMEN: Soft, nondistended, without focal tenderness
NEUROLOGICAL: Alert and oriented x3, no focal neuro deficits. Gait is acosta and steady.
SKIN: Warm and dry, normal color, skin intact. No rash.
MUSCULOSKELETAL: No C/C/E. peripheral pulses are full and equal b/l. No palpable tenderness.
PSYCH: Normal and appropriate interaction.
Course
Orders/Labs/Results
Orders:
Orders
05/26/24 04:42
Gabapentin [Neurontin] 800 mg PO NOW STA
Vital Signs
Initial and Last Documented VS:
Initial Vital Signs
Temp Pulse Resp BP Pulse Ox
97.8 F 85 20 152/95 100
05/26/24 02:52 05/26/24 02:52 05/26/24 02:52 05/26/24 02:52 05/26/24 02:52
Last Documented Vital Signs
Temp Pulse Resp BP Pulse Ox
97.8 F 81 20 140/80 96
05/26/24 02:52 05/26/24 03:30 05/26/24 03:30 05/26/24 03:21 05/26/24 03:22
MDM/Problems Addressed
Differential Diagnosis Includes:
Patient presents with complaints of anxiety, restlessness and difficulty sleeping which he believes is related to inadvertently losing his prescription bottle of gabapentin 4 days ago.
Sleeps when undisturbed and overall well in appearance.
No evidence of withdrawal syndromes on exam.
Continues to deny suicidal thoughts or plan.
Will resume gabapentin at his usual dose and I have written a prescription for a 3-day supply of gabapentin with plan for prompt follow-up with psychiatrist on Monday.
Chronic conditions affecting care: Psychiatric illness
Acute Exacerbation and/or Progression of Chronic Illness: Psychiatric illness
*Pulse Oximetry
Patient hypoxic: no
*Critical Care Note
Total Time (30-74mins, 75-104mins- exclusive of procedures): Not Applicable
ED Attending Note
-
Portions of this chart may have been created with voice recognition software.� Occasional wrong word or��sound alike� substitutions may have occurred due to the inherent limitations of voice recognition software.
Discharge Plan
Departure
Patient Disposition: Home (Routine Discharge)
Date of Disposition: 05/26/24
Time of Disposition: 04:43
Patient with high blood pressure during this ER visit?: No
Condition: Good
Discharge Problem:
gabapentin withdrawal
Instructions: Gabapentin
Prescriptions:
New
gabapentin 800 mg tablet
800 mg PO TID Qty: 9 0RF
No Action
gabapentin 600 mg Tablet
600 mg PO BID
lorazepam [Ativan] 0.5 mg tablet
0.5 mg PO BID PRN (Reason: nausea and vomiting) Qty: 10 0RF
lorazepam [Ativan] 0.5 mg tablet
0.5 mg PO BID PRN (Reason: nausea and vomiting) Qty: 10 0RF
metoclopramide HCl [Reglan] 10 mg tablet
10 mg PO Q8HPRN PRN (Reason: nausea and vomiting) Qty: 14 0RF
lorazepam [Ativan] 0.5 mg tablet
0.5 mg PO DAILY PRN (Reason: nausea and vomiting) Qty: 2 0RF
pantoprazole [Protonix] 40 mg tablet,delayed release (DR/EC)
40 mg PO DAILY Qty: 30 0RF
Referrals:
Giselle Foster MD [Family Provider] - Call in 1-3 days for appt
Interventions
Interventions:
*Risk Screen - Suicide Last Done: 05/26/24 02:52
*General Assessment Last Done: 05/26/24 03:22
*Neglect/Abuse Screening Last Done: 05/26/24 02:52
ED- Fall Risk Assessment Last Done: 05/26/24 03:22
*ED COVID-19 Vaccine History Last Done: 05/26/24 03:22
ED- Neurological Assessment Last Done: 05/26/24 03:22
ED-Psychological Assessment Last Done: 05/26/24 03:22
Discharge Date and Time
Print Language: [place]
[2024-05-26] MEDS: NEURONTIN 800 MG PO (05:00)
== END 2024-05-26 05:21 | disposition home or self-care (01) ==
LOC: EMR 02:50
PROVIDERS: EMERGENCY PHYSICIAN Emergency Medicine; FAMILY PHYSICIAN Emergency Medicine
DX: F19.239 Other psychoactive substance dependence with withdrawal, unspecified (principal); F17.290 Nicotine dependence, other tobacco product, uncomplicated; F41.9 Anxiety disorder, unspecified
CPT/HCPCS: 99283

== ENCOUNTER 2024-07-02 08:23 | Emergency (ER) | payer OTHER, SELFPAY ==
[2024-07-02 08:30] VITALS: BP 162/96
--- NOTE | 2024-07-02 09:17 | ED.GENMED ---
History of Present Illness
General
Chief Complaint: Abdominal Symptoms
Source: patient
Exam Limitations: none
Time Seen by Provider: 07/02/24 09:09
History of Present Illness
History of Present Illness:
23yoM with a history of substance use and cannabinoid hyperemesis syndrome presenting for evaluation of vomiting. Symptoms began this morning at 5 AM. He reports numerous episodes of vomiting, generalized abdominal pain, and feeling like he is
going to . Symptoms are identical to his prior episodes of cannabinoid hyperemesis. He admits to smoking marijuana yesterday after being abstinent for the past several months. Additionally, he stopped taking his Suboxone and gabapentin a few
days ago because he wanted to get off of these medications. He did take '110mg of Percocet' last night.
Past History
Past History
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
ED Past Surgical History: Other (omfs); Negative Appendectomy, Bowel resection, Cardiac or Cholecystectomy
Patient has exhibited threatening behavior?: No
Social History
Tobacco: Vaping
Alcohol: None
Drug: Marijuana (states that he stopped)
Personal: Single
Living: with family
Employment: Not employed
Phy Exam
Physical Exam
Physical Exam:
Patient retching and anxious
General Physical Exam
General Presentation: mild distress
General Skin: warm and dry
General Habitus: normal
General Mental: alert
ENT Exam
ENT Exam: normocephalic
Cardiovascular Exam
Cardiovascular Exam: regular rate/rhythm and no murmur
Pulmonary Exam
Pulmonary Exam: lungs clear, no respiratory distress, no rales, no crackles and no rhonchi
Gastrointestinal Exam
Gastrointestinal Exam: soft, non distended and other (+Generalized abdominal tenderness. Abdomen soft, non-distended. No rebound or guarding.)
Neurological Exam
Neurological Exam: alert
Soham Coma Scale
Eye Opening: Spontaneous
Verbal Response: Oriented
Motor Response: Obeys Commands
GCS Total Score: 15
Skin Exam
Skin Exam: normal color and warm/dry
Psychiatric Exam
Psychiatric Exam: anxious
Course
Orders/Labs/Results
Orders:
Orders
07/02/24 09:15
Add On- LAB Urgent
Tests Added?: lipase, magnesium
Electrocardiogram (*1) Urgent
Reason for Study: Abdominal Pain
EKG- Treatment ONCE
0.9% Sodium Chloride 1000 ml [Nss] 1,000 ml IV BOLUS
Haloperidol Lactate [Haldol] 1 mg IM NOW STA
07/02/24 09:16
Famotidine [Pepcid] 20 mg IV NOW STA
Pantoprazole [Protonix IV] 40 mg IV NOW STA
07/02/24 11:14
CBC/With Diff [Complete Blood Count/With Diff] Urgent
Comprehensive Metabolic Panel Urgent
Lipase Urgent
Magnesium Urgent
07/02/24 11:51
CT Abd/pelvis W Iv Cont Urgent
Comment:
Reason For Exam: generalized abd pain
Lorazepam [Ativan] 1 mg IV NOW STA
Ondansetron Injectable [Zofran] 4 mg IV NOW STA
07/02/24 16:33
Fentanyl, Urine Urgent
Urine Drug Abuse Screen Urgent
Date Specimen was Collected: 07/02/24
Time Specimen was Collected: 16:29
Abnormal Lab Results
07/02/24 07/02/24
11:14 16:33
Absolute Neuts (auto) 8.6 H 10^3/uL
(1.4-6.5)
Neutrophils % 81.1 H %
(42.2-75.2)
Lymphocytes % 15.5 L %
(20.5-51.1)
Glucose 142 H mg/dl
(70-99)
Ur Buprenorphine Positive H
(Negative)
Ur Oxycodone Screen Positive H
(Negative)
Urine Methadone Screen Positive H
(Negative)
Ur Barbiturates Screen Positive H
(Negative)
U Benzodiazepines Scrn Positive H
(Negative)
Urine Cocaine Screen Positive H
(Negative)
U Marijuana (THC) Screen Positive H
(Negative)
07/02/24 11:14
07/02/24 11:14
Vital Signs
Initial and Last Documented VS:
Initial Vital Signs
Temp Pulse Resp BP Pulse Ox
98.3 F 62 16 162/96 98
07/02/24 08:30 07/02/24 08:30 07/02/24 08:30 07/02/24 08:30 07/02/24 08:30
Last Documented Vital Signs
Temp Pulse Resp BP Pulse Ox
99 F 84 17 177/86 99
07/02/24 14:13 07/02/24 17:04 07/02/24 17:04 07/02/24 17:04 07/02/24 17:04
MDM/Problems Addressed
Differential Diagnosis Includes:
23yoM here with n/v and abd pain that started at 5am. Hx of cannabinoid hyperemesis syndrome and this feels the same. Also admits to taking 110mg of Percocet yesterday. Reportedly stopped taking Suboxone and gabapenin recently. Patient retching on
exam and very anxious. He is hypertensive with otherwise normal vitals. There is generalized abdominal tenderness without signs of peritonitis. Differential diagnosis includes but is not limited to: Cannabinol hyperemesis syndrome, gastroenteritis,
opioid withdrawal, dehydration
Initial ED plan: Check abdominal labs, magnesium, EKG, and CT abdomen. IM Haldol, Pepcid, Protonix, and fluid bolus for symptoms.
*EKG
Interpreted by ED Provider?: Yes
EKG Intrepretation Date: 07/02/24
Heart Rate: 46
Rate: bradycardiac
Rhythm: sinus
Alna: normal axis
Interval: normal interval
QRS Pattern: normal QRS
Ischemia: no ischemia
*Critical Care Note
Total Time (30-74mins, 75-104mins- exclusive of procedures): Not Applicable
Update Note
Update Note:
Labs overall unremarkable including normal white count, electrolytes, renal function. CT abdomen is negative for acute findings other than mild constipation. Patient also given IV Ativan and Zofran for persistent symptoms. No further vomiting
after receiving this and patient is able to tolerate p.o. liquids. Patient now requesting to go to rehab. [facility] evaluated patient and patient uncooperative with assessment. [facility] was seen at [facility] for an outpatient intake
last month. [facility] will not accept patient unless he finishes detoxing and patient is refusing to go to any other facility other than [facility]. He would like to go home and get his girlfriend into treatment before he goes to rehab.
At this point, will discharge patient. Prescription provided for Zofran.
ED Attending Note
-
Portions of this chart may have been created with voice recognition software.� Occasional wrong word or��sound alike� substitutions may have occurred due to the inherent limitations of voice recognition software.
Discharge Plan
Departure
Patient Disposition: Home (Routine Discharge)
Date of Disposition: 07/02/24
Time of Disposition: 17:26
Patient with high blood pressure during this ER visit?: Yes
Discharge Problem:
Nausea and vomiting, Substance use
Prescriptions:
New
ondansetron 4 mg tablet,disintegrating
4 mg PO Q6H PRN (Reason: nausea and vomiting) Qty: 20 0RF
No Action
gabapentin 600 mg Tablet
600 mg PO BID
lorazepam [Ativan] 0.5 mg tablet
0.5 mg PO BID PRN (Reason: nausea and vomiting) Qty: 10 0RF
lorazepam [Ativan] 0.5 mg tablet
0.5 mg PO BID PRN (Reason: nausea and vomiting) Qty: 10 0RF
metoclopramide HCl [Reglan] 10 mg tablet
10 mg PO Q8HPRN PRN (Reason: nausea and vomiting) Qty: 14 0RF
lorazepam [Ativan] 0.5 mg tablet
0.5 mg PO DAILY PRN (Reason: nausea and vomiting) Qty: 2 0RF
pantoprazole [Protonix] 40 mg tablet,delayed release (DR/EC)
40 mg PO DAILY Qty: 30 0RF
gabapentin 800 mg tablet
800 mg PO TID Qty: 9 0RF
Referrals:
Giselle Foster MD [Family Provider] -
Activity Restrictions/Additional Instructions:
Take Zofran as needed for nausea.
Please follow-up with your family doctor. Return to the ER with any new or worsening symptoms.
Interventions
Interventions:
*Risk Screen - Suicide Last Done: 07/02/24 10:45
*General Assessment Last Done: 07/02/24 11:07
*Neglect/Abuse Screening Last Done: 07/02/24 10:45
*ED- Fall Risk Assessment Last Done: 07/02/24 10:45
*ED COVID-19 Vaccine History Last Done: 07/02/24 10:45
*Nursing Disposition Last Done: 07/02/24 18:00
ZM-[id number] Assessment Last Done: 07/02/24 10:45
Discharge Date and Time
Discharge Date/Time: 07/02/24 18:20
Print Language: BELARUSIAN
[2024-07-02] MEDS: NSS 1000 IV (10:20)
[2024-07-02] MEDS: PROTONIX IV 40 MG IV (10:32)
[2024-07-02] MEDS: HALDOL 1 MG IM (10:32)
[2024-07-02] MEDS: PEPCID 20 MG IV (10:33)
[2024-07-02 10:45] VITALS: BP 160/85; BMI 27.9
[2024-07-02 11:24] LABS: % Basophils 0.1 % (0-2); % Immature Granulocytes 0.3 % (0-0.5); % Lymphocytes 15.5 % (20.5-51.1); % Neutrophils 81.1 % (42.2-75.2); Absolute Lymphocytes 1.6 10^3/uL (1.2-3.4); Absolute Monocytes 0.3 10^3/uL (0.1-0.6); Absolute Neutrophils 8.6 10^3/uL (1.4-6.5); Hematocrit 41.5 % (39.0-52.0); Hemoglobin 14.3 g/dL (13.0-18.0); Mean Corp Hgb Conc. 34.5 g/dL (33.0-37.0); Mean Corpuscular Hgb 29.2 pg (27.0-31.0); Mean Corpuscular Volume 84.7 fL (80.0-94.0); Mean Platelet Volume 10.3 fL (7.4-10.4); Nucleated Red Blood Cells % 0 % (-); Platelet Count 177 10^3/uL (130-400); Red Cell Dist. Width 12.4 % (11.5-14.5); White Blood Cell Count 10.6 10^3/uL (4.8-10.8)
[2024-07-02 11:43] LABS: ALT (SGPT) 14 U/L (0-50); AST (SGOT) 17 U/L (17-59); Albumin 4.3 g/dl (3.5-5.0); Alkaline Phosphatase 75 U/L (38-126); Blood Urea Nitrogen 12 mg/dl (9-20); Carbon Dioxide 26 mmol/L (22-30); Chloride 106 mmol/L (98-107); Estimated Creatinine Clearance > 125 ml/min; Glucose 142 mg/dl (70-99); Lipase 28 U/L (23-300); Magnesium 1.9 mg/dl (1.6-2.3); Potassium 3.8 mmol/L (3.5-5.1); Sodium 139 mmol/L (135-145); Total Bilirubin 0.6 mg/dl (0.2-1.3); Total Protein 6.8 g/dl (6.3-8.2); eGFR > 60.00
[2024-07-02] MEDS: ZOFRAN 4 MG IV (12:08)
[2024-07-02] MEDS: ATIVAN 1 MG IV (12:08)
[2024-07-02 14:13] VITALS: BP 169/95
[2024-07-02 17:04] VITALS: BP 177/86
[2024-07-02 17:09] LABS: Amphetamines Negative (Negative); Barbiturates Positive (Negative); Benzodiazepines Positive (Negative); Buprenorphine Positive (Negative)
[2024-07-02 17:10] LABS: Cocaine Positive (Negative); Marijuana Positive (Negative); Methadone Positive (Negative); Methamphetamines Negative (Negative); Opiates Negative (Negative); Phencyclidine Negative (Negative); Tricyclic Antidepressants Negative (Negative)
[2024-07-02 17:28] LABS: Fentanyl, Urine Negative (Negative)
== END 2024-07-02 18:20 | disposition home or self-care (01) ==
LOC: EMR 08:23
PROVIDERS: Emergency Medicine; Physician Assistant; EMERGENCY PHYSICIAN Emergency Medicine; FAMILY PHYSICIAN Emergency Medicine
DX: R11.2 Nausea with vomiting, unspecified (principal); F12.90 Cannabis use, unspecified, uncomplicated; F17.290 Nicotine dependence, other tobacco product, uncomplicated; F19.90 Other psychoactive substance use, unspecified, uncomplicated; F41.9 Anxiety disorder, unspecified; K59.00 Constipation, unspecified
CPT/HCPCS: 99284; 96374; 96375; 96372; 96361; 74177; 80053; 80306; 80307; 83690; 83735; 85025; 93005; Q9967

== ENCOUNTER 2024-10-10 21:14 | Emergency (ER) | payer OTHER, SELFPAY ==
[2024-10-10 21:20] VITALS: BP 151/96
[2024-10-10 22:42] VITALS: BP 147/107
[2024-10-10 22:47] VITALS: BP 145/107
[2024-10-10 23:00] VITALS: BP 162/95
[2024-10-10] MEDS: TORADOL 30 MG IM (23:35)
[2024-10-10] MEDS: PERCOCET 5/325 2 TABLET PO (23:35)
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
[2024-10-11] MEDS: ZOFRAN ODT (ORALLY DISINTEGRATING) 4 MG PO (00:50)
[2024-10-11 01:21] VITALS: BP 167/105
[2024-10-11] MEDS: NSS 1000 IV (01:46)
[2024-10-11] MEDS: HALDOL 2 MG IV (01:46)
[2024-10-11 02:00] VITALS: BP 166/108
[2024-10-11 02:00] LABS: % Basophils 0.4 % (0-2); % Eosinophils 0.4 % (0-6); % Immature Granulocytes 0.4 % (0-0.5); % Lymphocytes 25.8 % (20.5-51.1); % Monocytes 7.4 % (1.7-9.3); % Neutrophils 65.6 % (42.2-75.2); Absolute Lymphocytes 2.2 10^3/uL (1.2-3.4); Absolute Monocytes 0.6 10^3/uL (0.1-0.6); Absolute Neutrophils 5.6 10^3/uL (1.4-6.5); Hematocrit 35.1 % (39.0-52.0); Hemoglobin 12.2 g/dL (13.0-18.0); Mean Corp Hgb Conc. 34.8 g/dL (33.0-37.0); Mean Corpuscular Volume 83.4 fL (80.0-94.0); Mean Platelet Volume 8.9 fL (7.4-10.4); Nucleated Red Blood Cells % 0 % (-); Platelet Count 460 10^3/uL (130-400); Red Blood Cell Count 4.21 10^6/uL (4.70-6.10); Red Cell Dist. Width 13.2 % (11.5-14.5); White Blood Cell Count 8.6 10^3/uL (4.8-10.8)
[2024-10-11 02:11] LABS: ALT (SGPT) 12 U/L (0-50); AST (SGOT) 17 U/L (17-59); Albumin 4.4 g/dl (3.5-5.0); Alkaline Phosphatase 73 U/L (38-126); Blood Urea Nitrogen 18 mg/dl (9-20); Calcium 9.7 mg/dl (8.4-10.2); Carbon Dioxide 28 mmol/L (22-30); Chloride 102 mmol/L (98-107); Glucose 111 mg/dl (70-99); Lipase 27 U/L (23-300); Potassium 3.3 mmol/L (3.5-5.1); Sodium 143 mmol/L (135-145); Total Bilirubin 0.7 mg/dl (0.2-1.3); Total Protein 7.5 g/dl (6.3-8.2); eGFR > 60.00
[2024-10-11] MEDS: BENADRYL 25 MG IV (03:16)
[2024-10-11 03:18] VITALS: BP 161/110
[2024-10-11 03:19] VITALS: BP 178/101
== END 2024-10-11 03:28 | disposition home or self-care (01) ==
LOC: EMR 21:14
PROVIDERS: Physician Assistant; EMERGENCY PHYSICIAN Student in an Organized Health Care Education/Training Program; FAMILY PHYSICIAN Emergency Medicine
DX: M79.604 Pain in right leg (principal); R11.0 Nausea; F17.290 Nicotine dependence, other tobacco product, uncomplicated; F12.90 Cannabis use, unspecified, uncomplicated; Z87.828 Personal history of other (healed) physical injury and trauma
CPT/HCPCS: 96374; 96375; 96372; 96361; 99284; 73610; 73630; 80053; 83690; 85025; 93005

== ENCOUNTER → 2025-01-31 11:57 | Outpatient (REF) | payer OTHER, SELFPAY | LOC: RAD 11:57 | PROVIDERS: ATTENDING PHYSICIAN Physician Assistant Medical | DX: M79.671 Pain in right foot (principal) | CPT/HCPCS: 73610; 73630 ==